=== PATIENT | female | born 1985 | race African-American/Black ===

== ENCOUNTER 2017-01-10 20:53 | Observation (INO) | payer OTHER ==
[~2017-01-10] VITALS: Ht 162.6 cm; Wt 45.0 kg
[2017-01-10] MEDS: SODIUM CHLOR 0.9% 1000 ML INJ 1,000 ML IV SCH (00:30)
[~2017-01-10 20:53] MED LIST: CIPR500T4 PO; METR-1 PO
[2017-01-10 20:55] VITALS: BP 118/68; PULSE 80; RESP 16; TEMP 98.6; O2SAT 97
[2017-01-10] MEDS ORDERED: TETANUS/DIPHTHERIA TOXOID ADULT 0.5 ML VIAL IM ONE (22:15)
[2017-01-10] MEDS ORDERED: AMPICILLIN-SULBACTAM INJ 3 GM in SODIUM CHLORIDE 0.9% INJ 100 ML IV ONE (22:45)
[2017-01-10] MEDS ORDERED: KETOROLAC TROMETHAMINE 30 MG/ML (IVP) VIAL IV PUSH ONE (22:45)
--- NOTE | 2017-01-10 22:47 | PD ---
HPI Chief Complaint: Bite or Sting Time Seen by Provider: 22:43 Travel History International Travel<30 days: No Contact w/Intl Traveler<30days: No Traveled to known affect area: No History of Present Illness HPI 31-year-old [id number] black female presents to emergency Department with complaints of a dog bite to her right index finger which occurred earlier this afternoon. She states that she was her 2 dogs. She was bitten in the right index finger. She is having increasing pain to the DIP joint. She 's not up-to-date with immunizations. Pain is mild to moderate. Worse with movement. No alleviating factors. No numbness, tingling or weakness. PFSH Past Medical History Medical History: Denies Significant Hx Diminished Hearing: No Immunizations Current: Yes Tetanus Vaccination: > 5 Years Influenza Vaccination: No ?: Not LMP: 12/27/16 : 5 Para: 4 Miscarriage: 1 Past Surgical History Surgical History: No Previous Surgery Neurologic Surgery: No Other Surgery: No Social History Alcohol Use: No Tobacco Use: Yes Substance Use: No Allergies-Medications (Allergen,Severity, Reaction): Coded Allergies: No Known Allergies (Verified , 01/10/17) Reported Meds & Prescriptions Reported Meds & Active Scripts Active No Active Prescriptions or Reported Medications Review of Systems Except as stated in HPI: all other systems reviewed are Neg Physical Exam Narrative GENERAL: This is a well-nourished, well-developed patient, in no apparent distress. SKIN: No rashes, ecchymoses or lesions. Warm and dry. Examination the right index finger reveals a solitary small puncture wound over the DIP dorsally. There is a scant amount of serous drainage. This is been cultured. The patient complains of pain with movement at the DIP. She has good Refill and distal sensation. No other injuries HEAD: Atraumatic. Normocephalic. EYES: PERRL, EOMI, no discharge or injection. No scleral icterus. EARS: Clear NOSE: Nasal turbinates appear normal. THROAT: Mucosa pink and moist. Airway patent. NECK: Trachea midline. supple, moves head freely. LUNGS: Clear to auscultation. CV: Regular in rhythm. ABDOMEN: Soft nontender. EXT: No clubbing cyanosis or edema. Data Data Last Documented VS Vital Signs Date Time Temp Pulse Resp B/P Pulse Ox O2 Delivery O2 Flow Rate FiO2 5/6/17 20:55 98.6 80 16 118/68 97 Room Air Orders Finger ([id number]) (01/10/17 22:07) Ice/Cold Pack (01/10/17 22:07) Tetanus/Diphtheria Tox Adult (Tetanus/Di (01/10/17 22:15) Iv Access Insert/Monitor (01/10/17 22:37) Ampicillin-Sulbactam Inj (Unasyn Inj) (01/10/17 22:45) Ketorolac Inj (Toradol Inj) (01/10/17 22:45) Wound Culture And Gram Stain (01/10/17 22:37) Complete Blood Count With Diff (01/10/17 22:53) Basic Metabolic Panel (Bmp) (01/10/17 22:53) Diet Npo (01/11/17 Breakfast) Admit Order (Ed Use Only) (01/10/17 23:12) MDM Medical Decision Making Medical Screen Exam Complete: Yes Emergency Medical Condition: Yes Medical Record Reviewed: Yes Interpretation(s) Right hand: Negative for fracture or foreign body. Differential Diagnosis MDM: High Differential diagnoses: Fracture, sprain, strain, dislocation, contusion, neurovascular injury, dog bite Narrative Course 2246 The patient has sustained a tooth puncture of her right index finger dorsal DIP. She complains of pain with movement of the DIP joint. There is a small amount of serous drainage. This has been cultured. I am concerned that there may be a puncture into the joint. IV access has been obtained. Patient' s given 3 g of Unasyn IV area tetanus immunization. I have attempted to contact Dr. Islas the hand surgeon continuity clerk. A message has been left. 2251 The case has been discussed with Dr. Islas. She has agreed to be a qm consultant on the case. She would like the patient admitted to medicine and keep the patient nothing by mouth after midnight. Continue antibiotics and she will assess the patient in the morning. 2310 this case has been discussed with was agreed to admit the patient to observation status, keep the patient nothing by mouth and consult Dr. Islas in the morning. Diagnosis Primary Impression: dog bite puncture wound right index finger DIP Admitting Information Admitting Physician Requests: Observation Scripts No Active Prescriptions or Reported Meds Condition: Stable Dave Kee January 10, 2017 22:47
--- NOTE | 2017-01-10 22:49 | RADRPT ---
EXAM DATE/TIME: 01/10/2017 22:27 [facility] COMPARISON: No previous studies available for comparison. INDICATIONS : DOG BITE 2ND RIGHT DIGIT MEDICAL HISTORY : None. SURGICAL HISTORY : None. ENCOUNTER: Initial ACUITY: 1 day PAIN SCORE: 5/10 LOCATION: Right HAND 2ND DIGIT FINDINGS: Examination of the second digit of the right hand demonstrates no evidence of fracture or dislocation . No radiopaque foreign bodies are seen. The soft tissues are intact. CONCLUSION: Unremarkable examination of the right second finger. Dave Traylor MD on January 10, 2017 at 22:46 Board Certified Radiologist. This report was verified electronically.
[2017-01-10 23:16] LABS: AUTOMATED NEUTROPHIL # 3.3 TH/MM3 (1.8-7.7); BASOPHIL % 0.3 % (0.0-2.0); EOSINOPHIL % 0.5 % (0.0-4.0); HEMATOCRIT 36.6 % (35.0-46.0); HEMO FLAGS DIFF FINAL; LYMPH % 47.3 % (9.0-44.0); LYMPHOCYTE # 3.6 TH/MM3 (1.0-4.8); MEAN CELL VOLUME 85.7 FL (80.0-100.0); MEAN CORPUSCULAR HEMOGLOBIN 27.9 PG (27.0-34.0); MEAN CORPUSCULAR HGB CONC 32.6 % (32.0-36.0); MONO % 8.5 % (0.0-8.0); NEUT % 43.4 % (16.0-70.0); PLATELET COUNT 199 TH/MM3 (150-450); RED BLOOD COUNT 4.27 MIL/MM3 (4.00-5.30); RED CELL DISTRIBUTION WIDTH 14.6 % (11.6-17.2); WHITE BLOOD COUNT 7.6 TH/MM3 (4.0-11.0)
[2017-01-10 23:29] LABS: BICARBONATE 26.8 MEQ/L (21.0-32.0); POTASSIUM 3.3 MEQ/L (3.5-5.1)
[2017-01-10] MEDS ORDERED: BISACODYL 10 MG SUPP RECTAL PRN (23:30)
[2017-01-10] MEDS ORDERED: SODIUM CHLORIDE 0.9% FLUSH 10 ML FLUSH IV FLUSH PRN (23:30)
[2017-01-10] MEDS ORDERED: Vancomycin Consult Pharmacy 1 EA OTHER SCH (23:30)
[2017-01-10] MEDS ORDERED: ACETAMINOPHEN 325 MG TAB PO PRN (23:30)
[2017-01-10] MEDS ORDERED: ACETAMINOPHEN/HYDROcodone 325 MG/5 MG TAB PO PRN (23:30)
--- NOTE | 2017-01-10 23:36 | HHI.HP ---
HPI Service [facility] Primary Care Physician Unknown Admission Diagnosis dog bite puncture wound right index finger PIP joint Diagnoses: (1) Dog bite of finger Diagnosis: Principal (2) Hypokalemia Diagnosis: Principal (3) Tobacco abuse Diagnosis: Principal Travel History International Travel<30 Days: No Contact w/Intl Traveler <30 Da: No Traveled to Known Affected Are: No History of Present Illness This is a 31-year-old female with no significant PMH who presents to the ER after being bitten by her dog. States she was trying to separate her dog from another dog and was bitten in the right index finger. Reports dog's vaccines are up to date. On arrival, BP 118/68, HR 80, O2 sats 97% on RA, Afebrile. CBC unremarkable. Chemistry unremarkable except for K+ 3.3. Finger X-ray with unremarkable exam of right second finger. Dr. Islas consulted by ER physician, will evaluate in a.m. and make decision regarding possible surgical intervention. S/p Unasyn in ER. Review of Systems Except as stated in HPI: all other systems reviewed are Neg ROS: 14 point review of systems otherwise negative. Past Family Social History Past Medical History PMH: None Past Surgical History PAST SURGICAL HISTORY: None Allergies: Coded Allergies: No Known Allergies (Verified , 01/10/17) Family History PAST FAMILY HISTORY: Reviewed. No h/o DM or CAD Social History PAST SOCIAL HISTORY: Negative for alcohol or drugs. Positive for tobacco. Physical Exam Vital Signs Vital Signs Date Time Temp Pulse Resp B/P Pulse Ox O2 Delivery O2 Flow Rate FiO2 01/10/17 23:27 16 01/10/17 20:55 98.6 80 16 118/68 97 Room Air Physical Exam PE: GENERAL: Pleasant young female in no acute distress. HEENT: PERRLA, EOMI. No scleral icterus or conjunctival pallor. No lid lag or facial droop. CARDIOVASCULAR: Regular rate and rhythm. No obvious murmurs to auscultation. No chest tenderness to palpation. RESPIRATORY: No obvious rhonchi or wheezing. Clear to auscultation. Breath sounds equal bilaterally. GASTROINTESTINAL: Abdomen soft, non-tender, nondistended. BS normal. MUSCULOSKELETAL: Extremities without clubbing, cyanosis, or edema. No obvious deformities. Right finger w/ puncture wound. Decreased ROM due to pain. NEUROLOGICAL: Awake, alert and oriented x4. No focal neurologic deficits. Moving both upper and lower extremities spontaneously. Laboratory Laboratory Tests Test 01/10/17 23:00 White Blood Count 7.6 Red Blood Count 4.27 Hemoglobin 11.9 Hematocrit 36.6 Mean Corpuscular Volume 85.7 Mean Corpuscular Hemoglobin 27.9 Mean Corpuscular Hemoglobin 32.6 Concent Red Cell Distribution Width 14.6 Platelet Count 199 Mean Platelet Volume 8.3 Neutrophils (%) (Auto) 43.4 Lymphocytes (%) (Auto) 47.3 Monocytes (%) (Auto) 8.5 Eosinophils (%) (Auto) 0.5 Basophils (%) (Auto) 0.3 Neutrophils # (Auto) 3.3 Lymphocytes # (Auto) 3.6 Monocytes # (Auto) 0.6 Eosinophils # (Auto) 0.0 Basophils # (Auto) 0.0 CBC Comment DIFF FINAL Differential Comment Sodium Level 141 Potassium Level 3.3 Chloride Level 109 Carbon Dioxide Level 26.8 Anion Gap 5 Blood Urea Nitrogen 9 Creatinine 0.59 Estimat Glomerular Filtration 143 Rate Random Glucose 86 Calcium Level 8.7 Date/Time Procedure Status Source Growth 01/10/17 22:45 Gram Stain Received Wound Finger Pending 01/10/17 22:45 Wound Culture Received Wound Finger Pending Result Diagram: 01/10/17 2300 01/10/17 2300 Assessment and Plan Problem List: (1) Dog bite of finger ICD Code: S61.259A Status: Acute (2) Hypokalemia ICD Code: E87.6 Status: Acute (3) Tobacco abuse ICD Code: Z72.0 Status: Acute Assessment and Plan A/P: 1. Dog Bite: Right Index Finger. Pt's own dog, reports vaccines up to date. Finger X-ray w/ no acute findings, images reviewed by me. Dr. Islas consulted by ER physician, will eval in am for decision regarding surgical intervention. Will keep NPO just in case. IVF, analgesics/antiemetics as needed. S/p Tetanus and Unasyn IV in ER. Continue w/ IV Abx. 2. Hypokalemia: K+ 3.3. Will replace and recheck in am. 3. Tobacco Abuse: Pt counselled. NicoDerm prn if needed. 4. DVT Prophylaxis: SCD/Teds. 5. Social work for d/c planning as needed. 6. Case discussed w/ ER physician at length. La Hernandez MD January 10, 2017 23:36
[2017-01-11] VITALS (7 sets, daily range): BP systolic 96–133; BP diastolic 44–78; PULSE 68–104; RESP 18–21; TEMP 97.8–98.8; O2SAT 97–100
[2017-01-11] MEDS ORDERED: VANCOMYCIN 1,000 MG/NS 250 ML IV ONE ×2
[2017-01-11] MEDS ORDERED: POTASSIUM CHLORIDE 20 MEQ CONTROLLED RELEASE TAB PO ONE ×2 (00:30)
[2017-01-11] MEDS: AMPICILLIN-SULBACTAM INJ 3 GM in SODIUM CHLORIDE 0.9% INJ 100 ML IV SCH ×4 (05:58→23:00)
[2017-01-11 06:05] LABS: ANION GAP 8 MEQ/L (5-15); AST (GOT) 12 U/L (15-37); BICARBONATE 23.3 MEQ/L (21.0-32.0); BLOOD UREA NITROGEN 10 MG/DL (7-18); CHLORIDE 112 MEQ/L (98-107); GLOMERULAR FILTRATION RATE 130 ML/MIN (>89); POTASSIUM 3.8 MEQ/L (3.5-5.1); SODIUM (NA) 143 MEQ/L (136-145)
[2017-01-11 06:08] LABS: ALKALINE PHOSPHATASE 56 U/L (45-117); ALT (GPT) 17 U/L (10-53)
[2017-01-11 06:12] LABS: AUTOMATED NEUTROPHIL # 2.4 TH/MM3 (1.8-7.7); BASOPHIL % 0.2 % (0.0-2.0); EOSINOPHIL # 0.1 TH/MM3 (0-0.4); EOSINOPHIL % 1.3 % (0.0-4.0); HEMATOCRIT 35.7 % (35.0-46.0); HEMO FLAGS DIFF FINAL; LYMPH % 48.4 % (9.0-44.0); LYMPHOCYTE # 3.1 TH/MM3 (1.0-4.8); MEAN CELL VOLUME 85.6 FL (80.0-100.0); MEAN CORPUSCULAR HEMOGLOBIN 28.2 PG (27.0-34.0); MONO % 11.3 % (0.0-8.0); NEUT % 38.8 % (16.0-70.0); PLATELET COUNT 198 TH/MM3 (150-450); RED BLOOD COUNT 4.17 MIL/MM3 (4.00-5.30); RED CELL DISTRIBUTION WIDTH 14.3 % (11.6-17.2); WHITE BLOOD COUNT 6.3 TH/MM3 (4.0-11.0)
[2017-01-11] MEDS: SODIUM CHLORIDE 0.9% FLUSH 10 ML FLUSH IV FLUSH SCH ×2 (07:49→21:00)
[2017-01-11] MEDS ORDERED: PROPOFOL 200 MG/20 ML AMP IV ONE (09:09)
[2017-01-11] MEDS ORDERED: ONDANSETRON HCL 4 MG/2 ML VIAL IV PUSH ONE (09:09)
--- NOTE | 2017-01-11 09:18 | HHI.PR ---
Subjective Remarks "My finger still hurts and I can't bend it." Pt being followed for dog bite (by either her Barronie or Lillie Cordero) to her PIP joint of right index finger. Pt stated she was "bitten I think one time" and tried to treat herself at home with bandages "but after I bled through the fourth band-aid I didn't know what to do and came here." Pt denied fever, nausea, vomiting, body aches, or chills. Pt stated she is NPO and per RN is requesting ice chips. No other issues noted or reported by pt. Objective Vitals Vital Signs Date Time Temp Pulse Resp B/P Pulse Ox O2 Delivery O2 Flow Rate FiO2 01/11/17 07:49 98.4 72 21 96/44 97 01/11/17 03:28 98.5 78 19 110/56 100 01/11/17 00:38 98.8 79 19 112/52 100 01/10/17 23:27 16 01/10/17 20:55 98.6 80 16 118/68 97 Room Air I/O 01/10/17 01/10/17 01/10/17 01/11/17 01/11/17 01/11/17 07:00 15:00 23:00 07:00 15:00 23:00 Intake Total 500 ml Balance 500 ml Intake IV Total 500 ml Result Diagram: 01/11/17 0444 01/11/17 0444 Imaging Last Impressions Finger X-Ray 01/10/176 Signed Impressions: Service Date/Time: Tuesday, January 10, 2017 22:27 - CONCLUSION: Unremarkable examination of the right second finger. Dave Traylor MD Objective Remarks GENERAL: Pt encountered laying abed, dozing, yet quickly awakened, pleasant and cooperative. Not in acute distress. SKIN: Warm and dry. Puncture noted second PIP joint of right index. Slightly warm to the touch.Neurovascularly intact. HEAD: Normocephalic. EYES: No scleral icterus. No injection or drainage. NECK: Supple, trachea midline. No JVD or lymphadenopathy. CARDIOVASCULAR: Regular rate and rhythm without murmurs, gallops, or rubs. RESPIRATORY: Breath sounds equal bilaterally. No accessory muscle use. GASTROINTESTINAL: Abdomen soft, non-tender, nondistended. MUSCULOSKELETAL: No cyanosis, or edema. Second index finger could barely bend at PIP joint. Wrist evidenced good flexion and extension. PSYCHIATRIC: Pt alert and oriented x 3, without overt evidence of anxiety and depression. Procedures None noted within the past 24 hours. Medications and IVs Current Medications Medications (Trade) Dose Ordered Sig/Hallie Route Start Time Stop Time Status Last Admin Ampicillin Sodium/ Sulbactam Sodium 3 gm/Sodium Chloride 100 ml @ 200 mls/hr Q6H IV 01/11/17 05:00 01/11/17 05:58 Pharmacy Profile Note 0 ml @ 0 mls/hr UNSCH OTHER 01/10/17 23:30 (NS 1000 ml Inj) 1,000 ml @ 100 mls/hr Q10H IV 01/10/17 23:26 01/10/17 00:30 (NS Flush) 2 ml UNSCH PRN IV FLUSH 01/10/17 23:30 (NS Flush) 2 ml BID IV FLUSH 01/11/17 09:00 (Zofran Inj) 4 mg Q6H PRN IVP 01/10/17 23:30 (Dulcolax Supp) 10 mg DAILY PRN RECTAL 01/10/17 23:30 (Tylenol) 650 mg Q6H PRN PO 01/10/17 23:30 (Vantage 5-325 Mg) 1 tab Q4H PRN PO 01/10/17 23:30 (Morphine Inj) 2 mg Q3H PRN IV 01/10/17 23:30 Urinary Catheter: No Vascular Central Line Catheter: No A/P Problem List: (1) Dog bite of finger ICD Code: S61.259A Status: Acute (2) Hypokalemia ICD Code: E87.6 Status: Resolved (3) Tobacco abuse ICD Code: Z72.0 Status: Chronic Assessment and Plan 1. Dog Bite: Right Index Finger. Pt's own dog, reports vaccines up to date. Finger X-ray w/ no acute findings, images reviewed by me. Dr. Islas consulted by ER physician, yannick eval in am for decision regarding surgical intervention. Will keep NPO just in case. IVF, analgesics/antiemetics as needed. S/p Tetanus and Unasyn IV in ER. Continue w/ IV Abx. -awaiting Dr. Islas's input. Pain well controlled. Pt tolerating antibiotic regimen and without reaction to antibiotics noted or reported. Pt remains NPO. 2. Hypokalemia: K+ 3.3. Will replace and recheck in am. -resolved on the morning of 01/11/17, value of 3.8 3. Tobacco Abuse: Pt counselled. NicoDerm prn if needed. Case discussed with pt, ED nurse caring for pt, and Dr. Cueva. Written by Cachorro Thakkar, acting as scribe for Dr. Cueva on 01/11/17 at 09:14. Discharge Planning Pt to be discharged home when cleared by surgery. Cachorro Thakkar Jr. January 11, 2017 09:18 Olivia Cueva MD January 11, 2017 17:08
[2017-01-11] MEDS: SODIUM CHLOR 0.9% 1000 ML INJ 1,000 ML IV SCH ×2 (11:27→17:15)
[2017-01-11] MEDS ORDERED: BUPIVACAINE HCL PF 0.5% 30 ML VIAL ONE (15:00)
[2017-01-11] MEDS ORDERED: LIDOCAINE HCL 2% 50 ML VIAL ONE (15:00)
[2017-01-11] MEDS ORDERED: LIDOCAINE HCL 1% 50 ML VIAL ONE (15:00)
[2017-01-11] MEDS ORDERED: BACITRACIN TOP OINT 15 GM TUBE ONE (15:01)
[2017-01-11] MEDS ORDERED: BACITRACIN TOP OINT 15 GM TUBE TOP ONE (15:46)
[2017-01-11] MEDS ORDERED: NEOMYCIN/POLYMYXIN 1 ML G.U. IRRIGANT IR ONE (15:46)
[2017-01-11] MEDS ORDERED: MIDAZOLAM HCL 2 MG/2 ML VIAL ONE (16:35)
[2017-01-11] MEDS ORDERED: fentaNYL CITRATE 250 MCG/5 ML AMP ONE (16:36)
--- NOTE | 2017-01-11 16:51 | PD.ORT.PN ---
Subjective Subjective Remarks Patient reports pain controlled. Objective Vitals Vital Signs Date Time Temp Pulse Resp B/P Pulse Ox O2 Delivery O2 Flow Rate FiO2 01/11/17 14:55 58 16 112/64 100 01/11/17 12:49 97.8 68 18 119/57 97 01/11/17 07:49 98.4 72 21 96/44 97 01/11/17 03:28 98.5 78 19 110/56 100 01/11/17 00:38 98.8 79 19 112/52 100 01/10/17 23:27 16 01/10/17 20:55 98.6 80 16 118/68 97 Room Air I/O 01/10/17 01/10/17 01/10/17 01/11/17 01/11/17 01/11/17 07:00 15:00 23:00 07:00 15:00 23:00 Intake Total 500 ml Balance 500 ml Intake IV Total 500 ml # Voids 2 Result Diagram: 01/11/17 0444 01/11/17 0444 Imaging Last 24 hours Impressions Finger X-Ray 01/10/172206 Signed Impressions: Service Date/Time: Tuesday, January 10, 2017 22:27 - CONCLUSION: Unremarkable examination of the right second finger. Dave Traylor MD Objective Remarks Dressing in place, <2 sec capillary refill to finger Assessment & Plan Assessment and Plan 31yF s/p dog bite right index finger, POD0 s/p I&D right index finger DIP joint -Cultures taken, continue antibiotics, no intraoperative purulence, extensor tendon intact -Elevate right hand, okay to discharge tomorrow per hand surgery on oral antibiotics, followup in office 1-2 weeks Chikis Islas MD January 11, 2017 16:51
[2017-01-11] MEDS ORDERED: *morphine SULFATE 8 MG/ML PERIprocedure ONLY ONE (17:10)
--- NOTE | 2017-01-11 17:13 | MB ---
cc: BETY ERIC DATE OF CONSULTATION: 01/11/2017. REASON FOR CONSULTATION: Dog bite right index finger over the DIP joint. HISTORY OF PRESENT ILLNESS: Marely Fulton is a 31-year-old right hand-dominant female studying to be a [employer] who states that her dog, when she was breaking up a fight, accidentally bit her right index finger over the distal interphalangeal joint. She was seen in the emergency room on 01/10/2017 and started on IV antibiotics and admitted for observation and made n.p.o. at midnight for possible surgical intervention. She denies prior problems with the right hand. She denies paresthesias. She reports pain with range of motion of the right index finger DIP joint. She denies pain through the rest of the hand. She reports mild improvement on the IV antibiotics. The dog bite occurred on 01/10/2017 the afternoon of presentation. PAST MEDICAL HISTORY: Denies. PAST SURGICAL HISTORY: Denies. SOCIAL HISTORY: The patient is endorses tobacco use. Denies alcohol or drug use. ALLERGIES: NO KNOWN DRUG ALLERGIES. PHYSICAL EXAMINATION: GENERAL: The patient is alert and oriented. Exam of the right index finger shows a curvilinear laceration over the dorsum of the right index finger DIP joint. There is no gross purulence. The patient does have pain with range of motion of the DIP joint, although she does have full extension of the DIP joint. Sensation is intact on the radial and ulnar side. Less than 2-second capillary refill. LABORATORY DATA White count 6.3. IMAGING STUDIES: X-ray of the right hand and index finger shows no evidence of fracture or dislocation. ASSESSMENT AND PLAN: 31-year-old female status post a dog bite to the right index distal interphalangeal joint. Treatment options were discussed with the patient including continued IV antibiotics versus surgical intervention. She does report some improvement on the IV antibiotics but persistent pain and due to the open wound over the dorsum of the right index finger, she did elect proceed with surgical intervention. At the earliest available time, she will be taken to the operating room for incision and drainage of the open wound likely arthrotomy of the DIP joint, exploration of the extensor tendon and she elects to proceed. She understands she is at risk for wound complications, persistent infection, stiffness of the finger, need for additional surgeries and she elected to proceed. MD SHANEKA Proctor /4:58 PM /5:09 PM [facility]
--- NOTE | 2017-01-11 17:46 | MP ---
cc: CHIKIS ISLAS MD DATE OF SURGERY 01/11/17 PREOPERATIVE DIAGNOSIS Dog bite and open wound over the right index finger, distal interphalangeal joint. POSTOPERATIVE DIAGNOSIS Dog bite and open wound over the right index finger, distal interphalangeal joint. PROCEDURE 1. Irrigation, debridement open wound including skin, subcutaneous tissue, muscle and bone, right index finger. 2. Distal interphalangeal joint arthrotomy, right index finger. SURGEON Dr. Chikis Islas ANESTHESIA General and local. TOURNIQUET TIME 13 minutes at 250 mmHg. SPECIMEN Culture. INDICATIONS FOR PROCEDURE Marely Fulton is a 31-year-old female who sustained a dog bite over the right index finger DIP joint with pain and minimal improvement on IV antibiotics and wishes to proceed with surgical intervention. The risks were explained and are not limited to sepsis, wound complications, infection, need for additional surgeries, stiffness, pain, paresthesias and she elected to proceed. DESCRIPTION OF PROCEDURE The patient was identified in the preoperative holding area and the correct extremity was marked. The patient was taken back to the operating room where anesthesia was induced. The right upper extremity was prepped and draped in the normal sterile fashion. The prior curvilinear laceration of the dorsum of the DIP joint was extended slightly in a proximal and distal manner. The extensor tendon was found and found to be intact. The arthrotomy was made over the DIP joint and there was no gross purulence. Serous drainage was sent for culture. Care was taken to protect the germinal matrix. The wound was irrigated with 3 liters of antibiotic saline and closed with chromic in a loose fashion. The patient was placed into a soft dressing, awoken from anesthesia without any complications. She will remain admitted for IV antibiotics and close followup. I will see her in approximately 1 to 2 weeks. Chikis Islas MD SH/EO /5:02 PM /5:38 PM MTDD
[2017-01-11] MEDS ORDERED: VANCOMYCIN 1,000 MG/NS 250 ML IV SCH ×2 (18:00)
[2017-01-12] MEDS: MORPHINE SULFATE 4 MG/ML INJ IV PRN ×2 (02:01→08:16)
[2017-01-12] MEDS: SODIUM CHLOR 0.9% 1000 ML INJ 1,000 ML IV SCH (02:02)
[2017-01-12] MEDS: AMPICILLIN-SULBACTAM INJ 3 GM in SODIUM CHLORIDE 0.9% INJ 100 ML IV SCH (05:00)
[2017-01-12 08:08] VITALS: BP 139/67; PULSE 64; RESP 16; TEMP 98.3; O2SAT 100
[2017-01-12] MEDS: SODIUM CHLORIDE 0.9% FLUSH 10 ML FLUSH IV FLUSH SCH (08:16)
[2017-01-12] MEDS ORDERED: AUGM875T PO (09:27)
--- NOTE | 2017-01-12 09:27 | HHI.DCPOC ---
Discharge Care Plan Diagnosis: (1) Dog bite of finger Goals to Promote Your Health * To prevent worsening of your condition and complications * To maintain your health at the optimal level Directions to Meet Your Goals Take your medications as prescribed Follow your dietary instruction Follow activity as directed Keep your appointments as scheduled Take your immunizations and boosters as scheduled If your symptoms worsen call your PCP, if no PCP go to Urgent Care Center or Emergency Room Smoking is Dangerous to Your Health. Avoid second hand smoke Call the 24-hour hour crisis hotline for domestic abuse at Vivian Butler PA-C January 12, 2017 09:27 Olivia Cueva MD January 12, 2017 17:44
[2017-01-12] MEDS: ONDANSETRON HCL 4 MG/2 ML VIAL IVP PRN ×2 (09:31→13:53)
--- NOTE | 2017-01-12 09:38 | HHI.PR ---
Subjective Remarks Follow up for dog bite. The patient reports continued finger/hand pain at site of dog bite wound, pain temporarily relieved by IV morphine, no acute worsening overnight. However she reports nausea with 3 episodes of vomiting overnight, relieved by IV Zofran. Denies any abdominal pain, diarrhea, or constipation. Denies fevers/chills. Denies any other medical complaints at this time. Objective Vitals Vital Signs Date Time Temp Pulse Resp B/P Pulse Ox O2 Delivery O2 Flow Rate FiO2 01/12/17 08:21 20 01/12/17 08:08 98.3 64 16 139/67 100 01/11/17 23:55 98.1 74 18 128/71 99 01/11/17 20:10 98.6 71 18 133/78 100 01/11/17 18:22 98.3 104 18 125/71 100 01/11/17 17:15 98.0 66 16 142/70 99 Room Air 01/11/17 17:00 63 16 148/68 99 Room Air 01/11/17 16:45 61 16 138/70 99 Room Air 01/11/17 16:30 61 16 121/64 99 Room Air 01/11/17 16:26 97.6 87 16 146/81 98 Room Air 01/11/17 14:55 58 16 112/64 100 01/11/17 12:49 97.8 68 18 119/57 97 I/O 01/11/17 01/11/17 01/11/17 01/12/17 01/12/17 01/12/17 06:59 14:59 22:59 06:59 14:59 22:59 Intake Total 500 ml 900 ml Output Total 15 ml Balance 500 ml 885 ml Intake IV Total 500 ml 200 ml Other 700 ml Output Estimated Blood Loss 15 ml # Voids 2 1 Result Diagram: 01/11/17 0444 01/11/17 0444 Imaging Last Impressions Finger X-Ray 01/10/172206 Signed Impressions: Service Date/Time: Tuesday, January 10, 2017 22:27 - CONCLUSION: Unremarkable examination of the right second finger. Dave Traylor MD Objective Remarks GENERAL: Well-nourished, well-developed female patient in [facility]. SKIN: Warm and dry. No rash. Puncture wound noted second PIP joint of right index, wrapped in dressing, CDI. HEENT: Normocephalic. Atraumatic.Pupils equal and round. Mucous membranes pink and moist. NECK: Supple. Trachea midline. CARDIOVASCULAR: Regular rate and rhythm. S1, S2 noted. No murmur appreciated. RESPIRATORY: No accessory muscle use. Clear to auscultation. Breath sounds equal bilaterally. GASTROINTESTINAL: Abdomen soft, non-tender, nondistended. Normoactive bowel sounds x4. MUSCULOSKELETAL: No obvious deformities. Extremities without clubbing, cyanosis , or edema. NEUROLOGICAL: Awake and alert. No obvious cranial nerve deficits. Motor grossly within normal limits. Normal speech. PSYCHIATRIC: Appropriate mood and affect; insight and judgment normal. Procedures None noted within the past 24 hours. Medications and IVs Current Medications Medications (Trade) Dose Ordered Sig/Hallie Route Start Time Stop Time Status Last Admin Ampicillin Sodium/ Sulbactam Sodium 3 gm/Sodium Chloride 100 ml @ 200 mls/hr Q6H IV 01/11/17 05:00 01/12/17 05:00 Pharmacy Profile Note 0 ml @ 0 mls/hr UNSCH OTHER 01/10/17 23:30 (NS 1000 ml Inj) 1,000 ml @ 100 mls/hr Q10H IV 01/10/17 23:26 01/12/17 02:02 (NS Flush) 2 ml UNSCH PRN IV FLUSH 01/10/17 23:30 (NS Flush) 2 ml BID IV FLUSH 01/11/17 09:00 01/12/17 08:16 (Zofran Inj) 4 mg Q6H PRN IVP 01/10/17 23:30 01/12/17 09:31 (Dulcolax Supp) 10 mg DAILY PRN RECTAL 01/10/17 23:30 (Tylenol) 650 mg Q6H PRN PO 01/10/17 23:30 01/11/17 18:00 ([place] 5-325 Mg) 1 tab Q4H PRN PO 01/10/17 23:30 Morphine Sulfate 2 mg 2 mg Q3H PRN IV 01/10/17 23:30 01/12/17 08:16 (Vancomycin Inj/ NS 250 ml Inj) 250 ml @ 250 mls/hr Q18H IV 01/11/17 18:00 01/11/17 18:51 Miscellaneous Information SPECIFIC LAB TO BE ... ONCE ONCE .XX 01/13/17 05:45 01/13/17 05:46 A/P Problem List: (1) Dog bite of finger ICD Code: S61.259A Status: Acute (2) Hypokalemia ICD Code: E87.6 Status: Resolved (3) Tobacco abuse ICD Code: Z72.0 Status: Chronic Assessment and Plan 31-year-old female with: Dog Bite to Right Index Finger: Pt's own dog, reports vaccines up to date. Finger X-ray w/ no acute findings, images reviewed by me. Dr. Islas consulted, no surgical intervention required, continue abx, cleared for discharge on po abx. Continue IVF, analgesics/antiemetics as needed. S/p Tetanus in ER. Given IV Vanco and Unasyn x2days, transition to po Augmentin 875mg bid [id number]. Change pain medication from IV Morphine to [place]. Hypokalemia: K+ 3.3. Given po KCl replacement. Repeat K 3.8, resolved. Nausea/Vomiting: suspect secondary to combination of IV antibiotics and IV morphine. D/c morphine, change to po [place]. Change IV abx to po Augmentin. Continue IV Zofran prn. Monitor for improvement. Tobacco Abuse: Pt counselled. NicoDerm prn if needed. Written by Vivian Butler, acting as scribe for Dr. Cueva on 01/12/17 at 09:36. This note was transcribed by scribJay GANDHI. I, Dr. Olivia Cueva personally performed the history, physical exam, and medical decision making; and confirmed the accuracy of the information in the transcribed note. Authenticated by Dr. Olivia Cueva on 01/12/17 at 09:36. Discharge Planning Discharge today if nausea/vomiting resolves and patient able to tolerate oral intake. 1630hrs: Patient has improved, no further nausea/vomiting, tolerated her food and medications. She wants to go home. Will discharge. Discharge patient to home Condition on discharge: Improved Regular Diet as tolerated Ad Bertha activity, elevate RUE Rx written: [place] prn, Augmentin 875mg bid [id number], Zofran ODT prn, Colace 100mg bid Follow-up with primary care physician and hand surgeon Vivian Topete PA-C January 12, 2017 09:37 Olivia Cueva MD January 12, 2017 17:45
[2017-01-12] MEDS ORDERED: AMOXICILLIN/CLAVULANATE K 875 MG TAB PO ONE (11:15)
[2017-01-12] MEDS ORDERED: ZOFR4TAB3 SL (11:21)
[2017-01-12 12:03] VITALS: BP 123/59; PULSE 65; RESP 16; TEMP 98.5; O2SAT 100
[2017-01-12] MEDS ORDERED: COLA100C3 PO (13:19)
[2017-01-12] MEDS ORDERED: NORC5TAB PO ×2 (13:19→13:33)
[2017-01-12 16:05] VITALS: BP 118/66; PULSE 64; RESP 17; TEMP 99; O2SAT 100
[2017-01-12] MEDS ORDERED: AMOXICILLIN/CLAVULANATE K 875 MG TAB PO SCH (21:00)
[2017-01-13] MEDS ORDERED: PHARMACY ORDERED LAB ONE (05:45)
== END 2017-01-12 17:28 | disposition home or self-care (01) ==
LOC: NEPD 20:53 → NEDA 23:15 → NEPHCDU 01-11 00:20
PROVIDERS: ADMIT Hospitalist; ATTEND Hospitalist
DX: S61.250A Open bite of right index finger without damage to nail, initial encounter (principal); E87.6 Hypokalemia; R11.2 Nausea with vomiting, unspecified; F17.200 Nicotine dependence, unspecified, uncomplicated; W54.0XXA Bitten by dog, initial encounter
CPT/HCPCS: 01830; 26080; 73140; 80048; 80053; 85025; 87015; 87070; 87102; 87116; 87205; 87206; 90471; 90714; 96365; 96375; 99284; G0378; J0295; J1885; J2250; J2270; J2405; J3010; J3370; J7030; J7050

== ENCOUNTER 2017-07-09 15:22 | Emergency (ER) | payer OTHER ==
[~2017-07-09] VITALS: Ht 162.6 cm; Wt 44.0 kg
[~2017-07-09 15:22] MED LIST changes: +AUGM875T PO; -CIPR500T4 PO; +COLA100C3 PO; -METR-1 PO; +NORC5TAB PO; +ZOFR4TAB3 SL
[2017-07-09 15:27] VITALS: BP 116/77; PULSE 80; TEMP 97.9; O2SAT 99
[2017-07-09] MEDS ORDERED: IBUPROFEN 600 MG TAB PO ONE (16:15)
--- NOTE | 2017-07-09 16:33 | RADRPT ---
EXAM DATE/TIME: 07/09/2017 16:26 [facility] COMPARISON: No previous studies available for comparison. INDICATIONS : Left foot pain and swelling with no known injury. MEDICAL HISTORY : None. SURGICAL HISTORY : None. ENCOUNTER: Initial ACUITY: 2 days PAIN SCORE: 10/10 LOCATION: Left lateral foot. FINDINGS: Three view examination of the left foot demonstrates no soft tissue swelling, dislocation, or fractur e. The tarsal bones appear intact. The interphalangeal and metatarsophalangeal joints are intact. The calcaneus is intact. Bony mineralization is normal. CONCLUSION: Normal examination for a patient of this age. Filemon Ashford MD on July 09, 2017 at 16:31 Board Certified Radiologist. This report was verified electronically.
[2017-07-09] MEDS ORDERED: MEDI220T PO (16:57)
--- NOTE | 2017-07-09 16:57 | PD ---
HPI . Left foot pain Chief Complaint: Pain: Acute or Chronic Time Seen by Provider: 16:06 Travel History International Travel<30 days: No Contact w/Intl Traveler<30days: No Traveled to known affect area: No History of Present Illness HPI 31-year-old female reports emergency department for evaluation of left foot pain. She denies any falls, traumas, injuries to the foot. Patient states she doesn't know what happened her foot but the pain was acute and sudden in onset. Patient has no major medical history and doesn't take any daily medication. PFSH Past Medical History Blood Disorders: No Cancer: No Cardiovascular Problems: No Diminished Hearing: No Endocrine: No Genitourinary: No Immune Disorder: No Musculoskeletal: No Neurologic: No Psychiatric: No Reproductive: No Respiratory: No Immunizations Current: Yes ?: Not LMP: 07/08/17 : 5 Para: 4 Miscarriage: 1 Past Surgical History Neurologic Surgery: No Other Surgery: No Social History Alcohol Use: No Tobacco Use: Yes Substance Use: Yes Allergies-Medications (Allergen,Severity, Reaction): Coded Allergies: No Known Allergies (Verified Adverse Reaction, Unknown, 07/09/17) Reported Meds & Prescriptions Reported Meds & Active Scripts Active Naproxen Sodium 220 Mg Tab 440 Mg PO BID PRN [place] (Hydrocodone-Acetaminophen) 5-325 mg Tab 1 Tab PO Q6H PRN Colace (Docusate Sodium) 100 Mg Cap 100 Mg PO BID Zofran Odt (Ondansetron Odt) 4 Mg Tab 4 Mg SL Q8HR PRN Augmentin (Amoxicillin-Clavulanate) 875-125 mg Tab 875 Mg PO BID not for use in CrCl <30 ml/min. Review of Systems Except as stated in HPI: all other systems reviewed are Neg Physical Exam Narrative GENERAL: Well-nourished, well-developed 31-year-old female patient in no acute distress. Nontoxic appearing. SKIN: Focused skin assessment warm/dry. HEAD: Normocephalic. Atraumatic. EYES: No scleral icterus. No injection or drainage. NECK: Supple, trachea midline. No JVD or lymphadenopathy. CARDIOVASCULAR: Regular rate and rhythm without murmurs, gallops, or rubs. Pedal pulses +2 bilaterally. RESPIRATORY: Breath sounds equal bilaterally. No accessory muscle use. GASTROINTESTINAL: Abdomen soft, non-tender, nondistended. MUSCULOSKELETAL: Left foot tenderness to palpation. No obvious deformity, erythema, ecchymosis, cyanosis, or edema. BACK: Nontender without obvious deformity. No CVA tenderness. Data Data Last Documented VS Vital Signs Date Time Temp Pulse Resp B/P (MAP) Pulse Ox O2 Delivery O2 Flow Rate FiO2 07/09/17 17:07 07/09/17 15:27 97.9 80 99 Orders Orders Foot, Complete (Ayt2amz) (07/09/17 16:13) Ice/Cold Pack (07/09/17 16:13) Ibuprofen (Motrin) (07/09/17 16:15) Ed Discharge Order (07/09/17 16:57) MDM Medical Decision Making Medical Screen Exam Complete: Yes Emergency Medical Condition: Yes Differential Diagnosis Differential diagnoses include but not limited to plantar fasciitis, left foot contusion, left foot sprain, left foot fracture Narrative Course 31-year-old female presents emergency department for evaluation of left foot pain that occurred spontaneously. Patient denies any injuries, traumas or falls. There is no obvious deformity, ecchymosis or erythema. X-ray of the left foot ordered and pending. Ice applied to the left foot. Ibuprofen ordered for pain management. X-ray of the left foot shows no acute findings. Left foot will be Pepe wrap and patient will be discharged home with rice therapy instructions. Patient instructed to return to the emergency department with worsening condition but otherwise follow up with her primary care and given a prescription for naproxen for pain management. Last Impressions Foot X-Ray 07/09/17 0123 Signed Impressions: Service Date/Time: July 16:26 - CONCLUSION: Normal examination for a patient of this age. Filemon Ashford MD Diagnosis Primary Impression: Plantar fasciitis Referrals: Primary Care Physician Patient Instructions: General Instructions, Plantar Fasciitis (ED), Plantar Fasciitis Exercises (ED) Additional Instructions: Please return to emergency department if your symptoms return or worsen. Follow up with your primary care provider. Take medications as prescribed. Right therapy left foot, rest, ice, Pepe wrap with activity and elevate when resting Med/Other Pt SpecificInfo: Prescription(s) given Scripts Naproxen Sodium (Naproxen Sodium) 220 Mg Tab 440 MG PO BID Y for Pain Management, #12 TAB 0 Refills Prov: Devi Blackman 07/09/17 Disposition: 01 DISCHARGE HOME Condition: Stable Devi Blackman Jul 09, 2017 16:57
== END 2017-07-09 17:21 | disposition home or self-care (01) ==
LOC: NEPK 15:22
DX: M72.2 Plantar fascial fibromatosis (principal); Z72.0 Tobacco use
CPT/HCPCS: 73630; 99283